=== PATIENT | male | born 1995 | race Caucasian/White ===

== ENCOUNTER 2024-09-26 21:50 | Emergency (ER) | payer BC ==
[2024-09-26] MEDS: Ibuprofen 600 MG Tab PO ONE (22:21)
[2024-09-26] MEDS: Acetaminophen 500 MG Tab PO ONE (22:21)
== END 2024-09-27 00:16 | disposition home or self-care (01) ==
LOC: MW.ED 21:50
DX: B34.9 Viral infection, unspecified (principal); F17.210 Nicotine dependence, cigarettes, uncomplicated
CPT/HCPCS: 99283; A9270